=== PATIENT | female | born 2000 | race African-American/Black ===

== ENCOUNTER 2025-07-29 15:09 | Emergency (ER) | payer SELFPAY ==
[2025-07-29 15:58] LABS: Pregnancy Test - Urine (BHCG) Negative (Negative); Pregu Control Background? CLEAR/WHITE (CLR/WHITE); Pregu Control Bar Appear? YES (CONTROL BAR)
[2025-07-29 15:59] LABS: Bacteria/HPF Rare-Few HPF (None Seen); CAUTI Indications for Culture Alt mental st,lethar; Glucose, Urine (Dipstick) Normal (Negative); Leukocyte 250 Leu/uL (Negative); Protein, Urine (Dipstick) Negative (Neg-Trace); RBC/HPF 0-3 HPF (0-3); Specific Gravity, Urine 1.016 (1.002-1.036)
[2025-07-29 16:00] LABS: Urine Culture Reflex No No
== END 2025-07-29 16:31 | disposition home or self-care (01) ==
LOC: ERS 15:09
DX: U07.1 COVID-19 (principal); A59.9 Trichomoniasis, unspecified; R30.0 Dysuria
CPT/HCPCS: 81001; 81025; 87480; 87510; 87660; 99283